=== PATIENT | female | born 1980 | race Caucasian/White ===

== ENCOUNTER 2019-07-26 07:05 | Emergency (ER) | payer OTHER, SELFPAY ==
[2019-07-26 07:15] VITALS: BP 131/72; PULSE 94; RESP 19; TEMP 36.7; O2SAT 100
--- NOTE | 2019-07-26 07:33 | ED.GENADULT ---
HPI - General Adult General Chief complaint: Unspecified Stated complaint: swollen tonsils Time Seen by Provider: 07/26/19 07:18 Source: patient Mode of arrival: ambulatory Limitations: no limitations History of Present Illness HPI narrative: 38-year-old recently diagnosed with influenza here with complaints of sore throat since last 2 days. She states that her left tonsil is very painful has been taking [id number] medication with no relief. She denies any fever at this time. She also complains her left ear is very painful. Onset (ago): day(s) (2) Severity: moderate Severity scale (1-10): 6 Quality: aching Pain Consistency: constant Relieving factors: none Exacerbating factors: none Related Data Home Medications Medication Instructions Recorded Confirmed cetirizine 10 mg tablet 10 mg PO DAILY 07/18/19 07/18/19 esomeprazole magnesium 20 mg 20 mg PO DAILY 07/18/19 07/18/19 capsule,delayed release Allergies Allergy/AdvReac Type Severity Reaction Status Date / Time No Known Allergies Allergy Verified 07/26/19 07:26 Review of Systems Constitutional: Constitutional: Reports no additional constitutional complaints Eyes: Eyes: Reports no additional eye complaints ENT: Reports sore throat Cardiovascular: Cardiovascular: Reports no additional cardiovascular complaints Respiratory: Respiratory: Reports no additional respiratory complaints Gastrointestinal: Gastrointestinal: Reports no additional gastrointestinal complaints Musculoskeletal: Musculoskeletal: Reports no additional musculoskeletal complaints PMF Past Medical History Medical History GERD (gastroesophageal reflux disease) Social History Social History Smoking status: Never smoker Second hand tobacco smoke exposure: No Alcohol intake: never Exam Narrative: Exam Narrative: GENERAL: Well-appearing, well-nourished, and in no acute distress. HEAD: Normocephalic, atraumatic. EYES: PERRLA and EOMI. ENT: Nares clear, Left tonsil is enlarged compared to the right , no exudates mild erythema present. Mucous membranes moist. NECK: Supple. CHEST: Clear to auscultation. No respiratory distress. HEART: Regular rate and rhythm. No murmur heard. Normal peripheral pulses.. EXTREMITIES: Normal range of motion. No edema. SKIN: Warm, dry, no rash. NEURO: No focal deficits. Alert and oriented x3. PSYCH: Normal mood and affect. Course Course Emergency Course: Inform patient about her rapid strep screen at this time it appears to be more viral we will start her on prednisone . Vital Signs Vital signs: Vital Signs Temperature 36.7 C 07/26/19 07:15 Pulse Rate 94 07/26/19 07:15 Respiratory Rate 07/26/19 07:15 Blood Pressure 131/72 07/26/19 07:15 Pulse Oximetry 100 07/26/19 07:15 Temperature 36.7 C 07/26/19 07:15 Pulse Rate 94 07/26/19 07:15 Respiratory Rate 07/26/19 07:15 Blood Pressure 131/72 07/26/19 07:15 Pulse Oximetry 100 07/26/19 07:15 Medical Decision Making Vital Signs Vital Signs: Vital Signs Temperature 36.7 C 07/26/19 07:15 Pulse Rate 94 07/26/19 07:15 Respiratory Rate 07/26/19 07:15 Blood Pressure 131/72 07/26/19 07:15 Pulse Oximetry 100 07/26/19 07:15 Temperature 36.7 C 07/26/19 07:15 Pulse Rate 94 07/26/19 07:15 Respiratory Rate 07/26/19 07:15 Blood Pressure 131/72 07/26/19 07:15 Pulse Oximetry 100 07/26/19 07:15 Lab Data Labs: Strep Screen Presumptive Negative *(Reference Range: Negative)* Discharge Plan Discharge Clinical Impression: Pharyngitis Patient Disposition: Home, Self-Care Condition: Stable Instructions: Pharyngitis (ED) Prescriptions: New prednisone 20 mg tablet 20 mg PO BID Qty: 10 RF: 0 No Action oseltamivir [Tamiflu] 75 mg capsule 75 mg
== END 2019-07-26 07:45 | disposition home or self-care (01) ==
PROVIDERS: Emergency Provider Family Medicine; PCP Family Medicine
DX: J02.9 Acute pharyngitis, unspecified (principal); J11.1 Influenza due to unidentified influenza virus with other respiratory manifestations; K21.9 Gastro-esophageal reflux disease without esophagitis
CPT/HCPCS: 87880; 99283

== ENCOUNTER → 2022-12-25 10:24 | Outpatient (CLI) | payer OTHER, SELFPAY ==
--- NOTE | ~2022-12-25 | MM_ITS ---
EXAMINATION: MM screening renetta BI w guilherme HISTORY: Screening TECHNIQUE: Craniocaudal and mediolateral oblique 3-D tomosynthesis images were obtained and synthetic 2-D images were generated. CAD analysis was submitted and interpreted. COMPARISON: No prior mammogram is available for comparison at this institution. BREAST PARENCHYMAL COMPOSITION: The breasts are almost entirely fatty. FINDINGS: There is no evidence of suspicious mass, calcification, or architectural distortion to sugg est malignancy in either breast. There has been no suspicious interval change. IMPRESSION: 1. No mammographic evidence of malignancy. 2. Recommend routine screening mammography in one year. BI-RADS Category 1: Negative Reviewed, dictated and finalized at location [facility].
== END ==
PROVIDERS: PCP Family Medicine; Visit Provider Physician Assistant Medical
DX: Z12.31 Encounter for screening mammogram for malignant neoplasm of breast (principal)
CPT/HCPCS: 77063; 77067

== ENCOUNTER 2024-03-17 10:33 | Outpatient (CLI) | payer OTHER, SELFPAY ==
--- NOTE | ~2024-03-17 | MM_ITS ---
EXAMINATION: MM screening renetta BI w guilherme HISTORY: Screening TECHNIQUE: Craniocaudal and mediolateral oblique 3-D tomosynthesis images were obtained and synthetic 2-D images were generated. CAD analysis was submitted and interpreted. COMPARISON: 12/25/2022 BREAST PARENCHYMAL COMPOSITION: Not Dense: The breasts are almost entirely fatty. FINDINGS: There is no evidence of suspicious mass, calcification, or architectural distortion to sugg est malignancy in either breast. There has been no suspicious interval change. IMPRESSION: 1. No mammographic evidence of malignancy. 2. Recommend routine screening mammography in one year. BI-RADS Category 1: Negative Reviewed, dictated and finalized at location [facility].
== END 2024-03-17 10:34 | disposition home or self-care (01) ==
LOC: MICIMG 10:34
PROVIDERS: PCP Family Medicine; Visit Provider Family Medicine
DX: Z12.31 Encounter for screening mammogram for malignant neoplasm of breast (principal)
CPT/HCPCS: 77063; 77067

== ENCOUNTER 2025-03-23 13:33 | Outpatient (CLI) | payer OTHER, SELFPAY ==
--- NOTE | ~2025-03-23 | MM_ITS ---
EXAMINATION: MM screening renetta BI w guilherme HISTORY: Screening TECHNIQUE: Craniocaudal and mediolateral oblique 3-D tomosynthesis images were obtained and synthetic 2-D images were generated. CAD analysis was submitted and interpreted. COMPARISON: 12/25/2022 BREAST PARENCHYMAL COMPOSITION: Not Dense: The breasts are almost entirely fatty. FINDINGS: There is no evidence of suspicious mass, calcification, or architectural distortion to suggest malignancy in either breast. [There has been no significant interval change. IMPRESSION: 1. No mammographic evidence of malignancy. Recommend routine screening mammography in one year. BI-RADS Category 1: Negative Reviewed, dictated, and finalized at [facility]. Reviewed, dictated and finalized at location [facility]. IMPRESSION: 1. No mammographic evidence of malignancy. Recommend routine screening mammogra phy in one year. BI-RADS Category 1: Negative
== END 2025-03-23 13:34 | disposition home or self-care (01) ==
LOC: MICIMG 13:34
PROVIDERS: PCP Family Medicine; Visit Provider Family Medicine
DX: Z12.31 Encounter for screening mammogram for malignant neoplasm of breast (principal)
CPT/HCPCS: 77063; 77067